=== PATIENT | female | born 1990 | race Caucasian/White ===

== ENCOUNTER 2020-06-28 02:56 | Emergency (ER) | payer OTHER ==
[~2020-06-28] VITALS: Ht 172.7 cm; Wt 54.4 kg
[2020-06-28] MEDS ORDERED: LIDOCAINE 1% INJ 20 ML 20 ML VIAL INJ ONE (03:15)
[2020-06-28] MEDS ORDERED: TETANUS,DIPTH,PERTUSS P/F (BOOSTRIX) 0.5 ML VIAL IM ONE (03:15)
--- NOTE | 2020-06-28 03:54 | ED Neurological Problem ---
General Chief Complaint: Laceration Stated Complaint: LACERATION ON L EYEBROW/HEAD PAIN Nursing Triage Note: PATIENT REPORTS SHE DOES NOT REMEMBER HOW SHE GOT THE CUT ON HER RIGHT EYEBROW. SHE DENIES LOSS OF CONCIOUSNESS OR ASSAULT. PATIENT IS TEARFUL AND WORRIED ABOUT THE COST OF TREATMENT. ALERT AND ORIENTED X 4. STANDS TO TRANSFER TO BED FROM WHEELCHAIR WITHOUT ASSISTANCE. CALL LIGHT IN REACH, ENCOURAGED TO CALL FOR ASSISTANCE OR NEEDS. MONITORING MAINTAINED. Nursing Sepsis Screen: No Definite Risk Source: patient Exam Limitations: no limitations History of Present Illness Date Seen by Provider: Jun 28, 2020 Time Seen by Provider: 03:52 Initial Comments This 30-year-old young lady presents to the emergency room intoxicated with a laceration in the right brow. She does not remember exactly how she sustained the injury. She denies any assault. She denies any pain except right at the site of laceration. She is alert and oriented. Allergies and Home Medications Allergies Coded Allergies: No Known Drug Allergies (Unverified , 06/28/20) Patient Home Medication List Home Medication List Reviewed: Yes Review of Systems Review of Systems Constitutional: see HPI Eyes: No Symptoms Reported Ears, Nose, Mouth, Throat: no symptoms reported Respiratory: no symptoms reported Cardiovascular: no symptoms reported Gastrointestinal: no symptoms reported Genitourinary: no symptoms reported : No Musculoskeletal: no symptoms reported Skin: see HPI Psychiatric/Neurological: See HPI Endocrine: No Symptoms Reported Hematologic/Lymphatic: No Symptoms Reported Past Xtrvrvm-Lnykjv-Pclrlo Hx Past Med/Social Hx: Reviewed Nursing Past Med/Soc Hx Patient Social History Alcohol Use: Occasionally Uses Alcohol Beverage of Choice: Beer Recreational Drug Use: No Recent Foreign Travel: No Contact w/Someone Who Travel: No Recent Infectious Disease Expo: No Physical Abuse: No Sexual Abuse: No Mistreated: No Fear: No Immunizations Up To Date Tetanus Booster (TDap): Less than 5yrs Past Medical History Surgeries: No Respiratory: No Cardiac: No Neurological: No : No Reproductive Disorders: No Sexually Transmitted Disease: No HIV/AIDS: No Gastrointestinal: No Musculoskeletal: No Endocrine: No HEENT: No Cancer: No Adverse Reaction/Blood Tranf: No Family Medical History No Pertinent Family Hx Physical Exam Vital Signs Vital Signs - First Documented 06/28/20 03:03 Temp 35.3 Pulse 121 Resp 18 B/P (MAP) 137/107 (117) Pulse Ox 97 Capillary Refill : Less Than 3 Seconds Height, Weight, BMI Height: '" Weight: 110lbs. oz. 49.054265tp; 18.00 BMI Method:Stated General Appearance: WD/WN, no apparent distress HEENT: PERRL/EOMI, pharynx normal, other (1 cm laceration in the right brow. No dental injury) Neck: non-tender, full range of motion, normal inspection Respiratory: lungs clear, normal breath sounds, no respiratory distress, no accessory muscle use Cardiovascular: no edema, no murmur, tachycardia Gastrointestinal: normal bowel sounds, non tender, soft Extremities: non-tender, normal inspection, no pedal edema Neurologic/Psychiatric: technical associate II-XII nml as tested, no motor/sensory deficits, alert, oriented x 3, other (Anxious) Crainal Nerves: normal hearing, normal speech, PERRL Coordination/Gait: normal gait Motor/Sensory: no motor deficit, no sensory deficit Skin: normal color, warm/dry Procedures/Interventions Wound Location: Face Other Wound Location Right brow Wound's Depth, Shape: linear Wound Explored: clean Betadine Prep?: Yes Anesthesia: 1% Lidocaine Volume Anesthetic (ccs): 1 Suture: Prolene Suture Size: 6-0 Number of Sutures: 2 Layer Closure?: 1 Sterile Dressing Applied?: No Progress Wound surface was sprayed with lidocaine. Skin was then cleaned with alcohol and 1 mL of lidocaine was injected for anesthetic. Wound was then scrubbed with saline and chlorhexidine. Betadine prep was applied. 2 interrupted sutures were applied to approximate the wound. Progress/Results/Core Measures Results/Orders My Orders Orders - YASMANY GONZALEZ MD Dipht,Pertuss(Acell),Tet Adult (Boostrix (06/28/20 03:15) Lidocaine 1% Inj 20 Ml (Xylocaine 1% Inj (06/28/20 03:15) Medications Given in ED Current Medications Medications Dose Ordered Sig/Suman Route Start Time Stop Time Status Last Admin Dose Admin Diphtheria/ Tetanus/Acell Pertussis 0.5 ml ONCE ONCE IM 06/28/20 03:15 06/28/20 03:16 DC 06/28/20 03:38 0.5 ML Vital Signs/I&O 06/28/20 06/28/20 03:03 04:07 Temp 35.3 Pulse 121 101 Resp 18 18 B/P (MAP) 137/107 (117) 117/80 (117) Pulse Ox 97 93 Blood Pressure Mean: 117 Progress Progress Note : Progress Note Wound was cleaned and approximated. Boostrix tetanus immunization was administered. Patient demonstrated ability to walk independently and safely. She was discharged home. Departure Impression Primary Impression: Laceration of face Qualified Codes: S01.81XA - Laceration without foreign body of other part of head, initial encounter Additional Impression: Alcohol intoxication Qualified Codes: F10.920 - Alcohol use, unspecified with intoxication, uncomplicated Disposition: 01 HOME, SELF-CARE Condition: Improved Departure-Patient Inst. Decision time for Depature: 03:53 Referrals: GABINO MARSHALL DO (PCP/Family) Primary Care Physician Patient Instructions: Laceration Repair With Stitches (DC) Add. Discharge Instructions: Monitor your wound for signs of infection such as increasing redness, increasing swelling, puslike drainage, or fever. Return to care promptly if you notice these symptoms. Return in 4 days to have your sutures removed. This can be done in the ER without appointment and with no charge. Avoid excessive alcohol consumption. Call or return to care if you have any other questions or concerns. All discharge instructions reviewed with patient and/or family. Voiced understanding. YASMANY GONZALEZ MD Jun 28, 2020 03:54
[2020-06-28 04:07] VITALS: BP 117/80
== END 2020-06-28 04:07 | disposition home or self-care (01) ==
LOC: EDUNIT# 02:56 → ER 02:59
DX: S01.81XA Laceration without foreign body of other part of head, initial encounter (principal); F10.129 Alcohol abuse with intoxication, unspecified; Z23 Encounter for immunization; X58.XXXA Exposure to other specified factors, initial encounter
CPT/HCPCS: 12011; 90715

== ENCOUNTER 2021-09-10 06:29 | Day surgery (SDC) | payer BC, OTHER ==
[2021-09-10] VITALS (9 sets, daily range): BP systolic 93–130; BP diastolic 59–96
[~2021-09-10] VITALS: Ht 162.6 cm; Wt 54.4 kg
[2021-09-10] MEDS ORDERED: LACTATED RINGERS 1,000 ML IV PRN (06:45)
[2021-09-10] MEDS ORDERED: ONDANSETRON 4 MG/2 ML (SDV) Z0FRAN ONE (07:29)
[2021-09-10] MEDS ORDERED: proPOfol 200 MG/20 ML (DIPRIVAN) VIAL IV ONE (07:29)
[2021-09-10] MEDS ORDERED: SEVOFLURANE (ULTANE) 15 ML INHAL SOLN ONE (07:29)
[2021-09-10] MEDS ORDERED: LIDOCAINE PF 2% 5 ML (XYLOCAINE) VIAL ONE (07:29)
[2021-09-10] MEDS ORDERED: MIDAZOLAM 2 MG/2 ML (VERSED) VIAL IVP ONE (07:30)
[2021-09-10] MEDS ORDERED: fentaNYL INJ 100 MCG/2 ML AMP ONE (07:30)
[2021-09-10] MEDS ORDERED: MIDAZOLAM 2 MG/2 ML (VERSED) VIAL ONE (07:30)
[2021-09-10 07:33] LABS: BASOPHILS % (AUTO) 1 % (0-10); EOSINOPHILS # (AUTO) 0.2 10^3/uL (0.0-0.3); EOSINOPHILS % (AUTO) 3 % (0-10); HEMATOCRIT 41 % (35-52); HEMOGLOBIN 14.2 g/dL (11.5-16.0); LYMPHOCYTES # (AUTO) 2.6 10^3/uL (1.0-4.0); LYMPHOCYTES % (AUTO) 50 % (12-44); MEAN CORPUSCULAR HEMOGLOBIN 32 pg (25-34); MEAN CORPUSCULAR HGB CONC 35 g/dL (32-36); MEAN CORPUSCULAR VOLUME 94 fL (80-99); MEAN PLATELET VOLUME 9.1 fL (9.0-12.2); MONOCYTES # (AUTO) 0.4 10^3/uL (0.0-1.0); MONOCYTES % (AUTO) 8 % (0-12); NEUTROPHILS % (AUTO) 38 % (42-75); PLATELET COUNT 271 10^3/uL (130-400); WHITE BLOOD COUNT 5.2 10^3/uL (4.3-11.0)
--- NOTE | 2021-09-10 08:07 | Progress Note-Pre Operative ---
Pre-Operative Progress Note H&P Reviewed The H&P was reviewed, patient examined and no changes noted. Date Seen by Provider: Sep 10, 2021 Time Seen by Provider: 07:15 Date H&P Reviewed: Sep 10, 2021 Time H&P Reviewed: 07:15 Pre-Operative Diagnosis: Incomplete JANNET Franco DO Sep 10, 2021 08:07
[2021-09-10] MEDS ORDERED: ACHD5005 PO (08:09)
[2021-09-10] MEDS ORDERED: IBUP-1773 PO (08:09)
--- NOTE | 2021-09-10 08:10 | Discharge Inst-Women's Service ---
Discharge Inst-Women's Serv Depart Medication/Instructions New, Converted or Re-Newed RX: Transmitted to Pharmacy Problems Reviewed?: Yes Consults/Follow Up Additional Follow Up: Yes Orders/Referrals Dr. Johnson in 2 weeks Activity Activity: Activity as Tolerated Driving Instructions: You May Drive (do not drive today) NO SMOKING: NO SMOKING Nothing Inside Vagina: No Douching, No [place], No Tampons Diet Discharge Diet: No Restrictions Symptoms to Report to : Bleeding Excessive, Pain Increased, Fever Over 101 Degrees F, Vaginal Bleeding Increase, Questions/Concerns For Any Problems or Questions: Contact Your Physician JANNET JOHNSON DO Sep 10, 2021 08:10
[2021-09-10] MEDS ORDERED: KETOROLAC 30 MG/ML VIAL IVP ONE (08:15)
[2021-09-10] MEDS ORDERED: HYDROcodone/APAP 5 MG/325 MG (LORTAB) TAB PO PRN (08:15)
[2021-09-10] MEDS ORDERED: D5 LR IV SOLUTION 1,000 ML IV SCH (08:15)
[2021-09-10] MEDS ORDERED: ONDANSETRON 4 MG/2 ML (SDV) Z0FRAN IVP PRN (08:15)
--- NOTE | 2021-09-10 10:06 | OPERATIVE REPORT ---
DATE OF SERVICE: 09/10/2021 PREOPERATIVE DIAGNOSIS: A 31-year-old female with incomplete . POSTOPERATIVE DIAGNOSIS: A 31-year-old female with incomplete . PROCEDURE: Suction D and C. SURGEON: Jannet Johnson DO. ANESTHESIA: LMA general. ESTIMATED BLOOD LOSS: Minimal. URINE OUTPUT: 30 mL clear drained at the start of the procedure. FLUIDS: 600 mL lactated Ringer's solution. FINDINGS: Scant amount of endometrial products of conception, grossly normal appearing external female genitalia. SPECIMEN SENT: Endometrial curettings and products of conception. INDICATIONS FOR PROCEDURE: This 31-year-old female is a patient who had initially sought [facility]; however, she ended up having a miscarriage at home. Her hCG values were followed weekly until there was a plateau noted to have approximately 500 units beta hCG. At that point, they started following the patient and also reported that she continued to have some bleeding that was not heavy, but it was continuous, due to suspicion for retained products of conception and incomplete , I discussed with the patient proceeding with suction D and C. Risks of procedure were discussed with the patient in detail as well as the indications with both her and her present. We agreed that suction D and C would be the best course of action. After everything was discussed with the patient, consent was obtained, the patient was taken to the operating room. OPERATIVE REPORT IN DETAIL: Once in the operating room, anesthesia was found to be adequate, placed in dorsal lithotomy position, prepped and draped in normal sterile fashion. Timeout was performed. A weighted speculum inserted to the patient's vagina. Right angle retractor was used to visualize the cervix, which was grasped at 12 o'clock position using a long Allis clamp. I then gently sound the uterine cavity, depth was found to be approximately 7 cm. I gently dilated the cervix to approximately 7 cm, at which point I selected a 7 cm rigid [place] suction curette. I advanced this into the endometrial cavity. I then applied the Baldo suction to a maximum suction pressure of approximately 70 mmHg, at which point I rotated the suction curette and methodically clear the endometrium of all residual products of conception and endometrial tissue. This was done on several different passes. There is little to no bleeding noted after doing this; however, I do perform a gentle sharp curettage until a very light uterine cry is appreciated at which point, I made one final pass with the suction curette. There was no active bleeding noted at that point, I removed all the instruments from the patient's vagina. The patient tolerated the procedure well and sent to recovery area in stable condition. Lap and sponge counts were correct at the end of the procedure. Instrument counts correct as well. Job ID: [id number] DocumentID: [id number] Dictated Date: 09/10/2021 08:57:31 Laborer Pipelines Date: 09/10/2021 10:06:10 Dictated By: JANNET JOHNSON DO
--- NOTE | 2021-09-10 10:40 | Anesthesia-General Post-Op ---
General Patient Condition Mental Status/LOC: Same as Preop Cardiovascular: Satisfactory Nausea/Vomiting: Absent Respiratory: Satisfactory Pain: Controlled Complications: Absent Post Op Complications Complications None Follow Up Care/Instructions Patient Instructions None needed. Anesthesia/Patient Condition Patient Condition Patient is doing well, no complaints, stable vital signs, no apparent adverse anesthesia problems. No complications reported per nursing. JANNETH MCDUFFIE CRNA Sep 10, 2021 10:40
== END 2021-09-10 10:35 | disposition home or self-care (01) ==
LOC: SDC 06:29
PROVIDERS: ATTEND Obstetrics & Gynecology
DX: O03.9 Complete or unspecified spontaneous abortion without complication (principal)
CPT/HCPCS: 36415; 85025; 86850; 86900; 86901; 87081

== ENCOUNTER → 2022-06-30 | Outpatient (CLI) | payer BC ==
[~2022-06-30] MED LIST: ACHD5005 PO; IBUP-1773 PO
--- NOTE | 2022-06-30 13:49 | Diagnostic Imaging Report ---
INDICATION: anatomy survey. TECHNIQUE: Multiple real-time grayscale images were obtained over the gravid uterus. COMPARISON: None. FINDINGS: The cervix measures 3.2 cm in length. Single live intrauterine is in breech presentation. Placenta is posteriorly positioned and there is no previa. The BRODY is normal at 13.26 cm. Following anatomy structures are visualized and normal: Four-chamber heart, stomach, spine, umbilical cord insertion, cerebral ventricles, posterior fossa, urinary bladder, three-vessel cord, right ventricular outflow tract, kidneys, left ventricular outflow tract and lip/nose. Biometrical measurements are as follows: Biparietal 4.31 cm, age 19 weeks 1 days. Head circumference 16.11 cm, age 19 weeks 0 days. Abdominal circumference 13.64 cm, age 19 weeks 1 days. Femur length 2.76 cm, age 18 weeks 4 days. Sonographic estimate age: 19 weeks 0 days. Sonographic estimated date of delivery: 11/24/2022. Estimated Weight: 258 gm (+/- 38 gm). LMP percentile: 34%. heart rate: 134 beats per minute. number: 1 of 1. IMPRESSION: 1. Single live intrauterine has normal anatomy survey. Dictated by: Dictated on workstation # [id number]
== END ==
LOC: RAD 09:41
PROVIDERS: ATTEND Nurse Practitioner Women's Health
DX: Z34.02 Encounter for supervision of normal first pregnancy, second trimester (principal)
CPT/HCPCS: 76805

== ENCOUNTER 2022-11-19 22:28 | Inpatient (IN) | payer BC ==
[~2022-11-19] VITALS: Ht 172.7 cm; Wt 75.6 kg
[2022-11-19 22:56] LABS: BILIRUBIN,URINE NEGATIVE (NEGATIVE); CLARITY,URINE CLEAR; COLOR,URINE YELLOW; GLUCOSE, URINE (UA) NEGATIVE (NEGATIVE); KETONES,URINE NEGATIVE (NEGATIVE); LEUKOCYTE ESTERASE ,URINE NEGATIVE (NEGATIVE); NITRITE,URINE NEGATIVE (NEGATIVE); PH,URINE 6.5 (5-9); PROTEIN,URINE NEGATIVE (NEGATIVE)
[2022-11-19 22:59] VITALS: BP 141/95
[2022-11-19 23:05] LABS: BACTERIA,URINE MODERATE /HPF
[2022-11-19 23:13] VITALS: BP 129/97
[2022-11-19] MEDS ORDERED: ASPI-999 PO (23:33)
[2022-11-19] MEDS ORDERED: PREN-142 PO (23:33)
[2022-11-20] VITALS (49 sets, daily range): BP systolic 76–166; BP diastolic 51–111
[2022-11-20] MEDS ORDERED: CALCIUM CARBONATE 500 MG (TUMS) TAB.CHEW ONE (01:28)
[2022-11-20] MEDS: CALCIUM CARBONATE 500 MG (TUMS) TAB.CHEW PO PRN ×3 (01:30→13:08)
[2022-11-20 01:32] LABS: BASOPHILS % (AUTO) 0 % (0-10); EOSINOPHILS # (AUTO) 0.1 10^3/uL (0.0-0.3); EOSINOPHILS % (AUTO) 1 % (0-10); HEMATOCRIT 40 % (35-52); HEMOGLOBIN 13.9 g/dL (11.5-16.0); LYMPHOCYTES # (AUTO) 2.4 10^3/uL (1.0-4.0); LYMPHOCYTES % (AUTO) 21 % (12-44); MEAN CORPUSCULAR HEMOGLOBIN 32 pg (25-34); MEAN CORPUSCULAR HGB CONC 35 g/dL (32-36); MEAN CORPUSCULAR VOLUME 92 fL (80-99); MEAN PLATELET VOLUME 10.9 fL (9.0-12.2); MONOCYTES # (AUTO) 0.6 10^3/uL (0.0-1.0); MONOCYTES % (AUTO) 5 % (0-12); NEUTROPHILS # (AUTO) 8.4 10^3/uL (1.8-7.8); NEUTROPHILS % (AUTO) 73 % (42-75); PLATELET COUNT 260 10^3/uL (130-400); WHITE BLOOD COUNT 11.5 10^3/uL (4.3-11.0)
[2022-11-20 01:45] LABS: ALBUMIN 3.6 GM/DL (3.2-4.5); POTASSIUM 3.8 MMOL/L (3.6-5.0)
[2022-11-20 01:47] LABS: CALCIUM 9.6 MG/DL (8.5-10.1)
[2022-11-20 01:48] LABS: TOTAL PROTEIN 7.6 GM/DL (6.4-8.2)
[2022-11-20 01:50] LABS: BILIRUBIN,TOTAL 0.3 MG/DL (0.1-1.0)
[2022-11-20 01:52] LABS: CREATININE SERUM 0.62 MG/DL (0.60-1.30)
[2022-11-20 01:55] LABS: URIC ACID 5.6 MG/DL (2.6-7.2)
--- NOTE | 2022-11-20 06:51 | OB Triage Report ---
Standard Progress Note Progress Notes/Assess & Plan Date Seen by a Provider: Nov 20, 2022 Time Seen by a Provider: 06:30 Expected Date of Delivery: Nov 24, 2022 Gestational Age in Weeks: 39 Gestational Age in Days: 2 LMP/GWYN Comment: n/a Progress/Assessment & Plan Patient presented overnight as 32 yo at 39w2d GA due to leakage of fluid. Reports that underwear felt wet the last 24 hours or so, but denies any large gushes or constant trickling, and reports that since being in the hospital it has decreased substantially; denies vaginal bleeding, and reports good FM. No contractions subjectively. Reports occasional mild PASCAL but nothing persistent, and no other systemic complaints See vitals flowsheet Exam notable for trace bilateral LE edema Abd soft, gravid, non-tender, non-distended A/P: 32 yo at 39w2d GA who presented with LOF; clinical evaluation reassuring against ROM. However, 3 of her initial BPs were noted to be elevated, potentially suspicious for gHTN. For that reason I recommended observation overnight, and after about 7 hours observation on L&D, she remained normotensive for the remainder of her evaluation (outside the first hour), so that a diagnosis of gHTN could not be made at this time. She was amenable to DC to home with return precautions, and will monitor particularly for symptoms of preE; has appt in clinic tomorrow for short term follow up Final Diagnosis leakage of fluid ALEC BERNSTEIN MD Nov 20, 2022 06:51
--- NOTE | 2022-11-20 07:54 | History & Physical-OB/GYN ---
History of Present Illness History of Present Illness Reason for visit/HPI Patient presents as 32 yo at 39w1d GA with leakage of fluid. See triage note from just an hour ago, but briefly, during discharge process patient stood up and felt a larger gush of fluid, and ROMPlus swab was performed and positive. She still reports no bleeding or contractions, and no new complaints since last note Date of Admission Nov 20, 2022 at 07:15 Date Seen by a Provider: Nov 20, 2022 Time Seen by a Provider: 07:30 I consulted on this patient on 11/20/22 07:47 Attending Physician Alec Bernstein MD Admitting Physician Admitting Physician: Alec Bernstein MD Attending Physician: Alec Bernstein MD Consult Allergies and Home Medications Allergies Coded Allergies: No Known Drug Allergies (Unverified , 09/10/21) Patient Home Medication List Home Medication List Reviewed: Yes Aspirin (Aspirin) 81 Mg Tab.chew, 81 MG PO, (Reported) Entered as Reported by: EMELY JIANG on 11/19/222332 Last Action: New Order Vit No.124/Iron/FA ( Vitamin Tablet) 27 Mg Iron-800 Mcg Tablet, 1 EACH PO, (Reported) Entered as Reported by: EMELY JIANG on 11/19/222332 Last Action: New Order Discontinued Medications Hydrocodone/Acetaminophen (Hydrocodone-Acetamin 5-325 mg) 1 Each Tablet, 1 TAB PO Q4H PRN for PAIN-MODERATE (5-7) Discontinued Reason: No Longer Taking Prescribed by: JANNET JOHNSON on 09/10/21808 Last Action: Discontinued Ibuprofen (Ibuprofen) 600 Mg Tablet, 600 MG PO Q6H Discontinued Reason: No Longer Taking Prescribed by: JANNET JOHNSON on 09/10/21808 Last Action: Discontinued Past Btcsfkx-Knasoj-Fsjona Hx Patient Social History Alcohol Beverage of Choice: Beer Smoking Status: Never a Smoker 2nd Hand Smoke Exposure: No Recent Hopitalizations: No Immunizations Up To Date Tetanus Booster (TDap): Less than 5yrs Seasonal Allergies Seasonal Allergies: No Surgeries Yes (wisdome teeth at the age of 17) Respiratory No Currently Using CPAP: No Currently Using BIPAP: No Cardiovascular No Neurological No Reproductive System Expected Date of Delivery: Nov 24, 2022 Hx : 2 Hx Para: 0 Hx Reproductive Disorders: No Sexually Transmitted Disease: No HIV/AIDS: No Gastrointestinal No Musculoskeletal No Endocrine History of Endocrine Disorders: No HEENT History of HEENT Disorders: No Cancer No Psychosocial History of Psychiatric Problem: No Integumentary History of Skin or Integumenta: No Blood Transfusions History of Blood Disorders: No Adverse Reaction to a Blood Tr: No Family Medical History Significant Family History: No Pertinent Family Hx Review of Systems Constitutional: no symptoms reported EENTM: no symptoms reported Respiratory: no symptoms reported Cardiovascular: no symptoms reported Gastrointestinal: no symptoms reported Genitourinary: no symptoms reported : Yes Musculoskeletal: no symptoms reported Skin: no symptoms reported Psychiatric/Neurological: No Symptoms Reported All Other Systems Reviewed Negative Unless Noted: Yes Physical Exam Physical Exam Vital Signs Vital Signs Date Time Temp Pulse Resp B/P (MAP) Pulse Ox O2 Delivery O2 Flow Rate FiO2 11/20/22 06:46 11/20/22 06:16 36.6 97 18 121/87 (98) 11/20/22 03:46 11/20/22 03:16 80 133/88 (103) 11/20/22 02:16 96 109/73 (85) 11/20/22 01:03 86 137/95 (109) 11/20/22 00:30 83 135/96 (109) 11/19/22 23:13 93 129/97 (108) 99 11/19/22 22:59 36.6 88 18 141/95 99 Room Air Capillary Refill : Less Than 3 Seconds Labs Laboratory Tests 11/19/22 22:45: Urine Color YELLOW, Urine Clarity CLEAR, Urine pH 6.5, Urine Specific [place] 1.010L, Urine Protein NEGATIVE, Urine Glucose (UA) NEGATIVE, Urine Ketones NEGATIVE, Urine Nitrite NEGATIVE, Urine Bilirubin NEGATIVE, Urine Urobilinogen 0.2, Urine Leukocyte Esterase NEGATIVE, Urine RBC (Auto) NEGATIVE, Urine RBC NONE, Urine WBC 2-5, Urine Squamous Epithelial Cells 10-25H, Urine Crystals NONE, Urine Bacteria MODERATEH, Urine Casts NONE, Urine Mucus SMALLH, Urine Culture Indicated YES 11/20/22 01:15: White Blood Count 11.5H, Red Blood Count 4.34, Hemoglobin 13.9, Hematocrit 40, Mean Corpuscular Volume 92, Mean Corpuscular Hemoglobin 32, Mean Corpuscular Hemoglobin Concent 35, Red Cell Distribution Width 13.1, Platelet Count 260, Mean Platelet Volume 10.9, Immature Granulocyte % (Auto) 0, Neutrophils (%) (Auto) 73, Lymphocytes (%) (Auto) 21, Monocytes (%) (Auto) 5, Eosinophils (%) (Auto) 1, Basophils (%) (Auto) 0, Neutrophils # (Auto) 8.4H, Lymphocytes # (Auto) 2.4, Monocytes # (Auto) 0.6, Eosinophils # (Auto) 0.1, Basophils # (Auto) 0.0, Immature Granulocyte # (Auto) 0.0, Sodium Level 140, Potassium Level 3.8, Chloride Level 109H, Carbon Dioxide Level 15L, Anion Gap 16H, Blood Urea Nitrogen 5L, Creatinine 0.62, Estimat Glomerular Filtration Rate 121, BUN/Creatinine Ratio 8, Glucose Level 78, Uric Acid 5.6, Calcium Level 9.6, Corrected Calcium 9.9, Total Bilirubin 0.3, Aspartate Amino Transf (AST/SGOT) 18, Alanine Aminotransferase (ALT/SGPT) 8, Alkaline Phosphatase 185H, Lactate Dehydrogenase 481H, Total Protein 7.6, Albumin 3.6 11/20/22 07:00: Membranes Rupture POSITIVE General Appearance: No Apparent Distress Respiratory: Normal Breath Sounds, No Respiratory Distress Cardiovascular: Normal Peripheral Pulses Cervix OS: open (1cm per nursing staff) Assessment/Plan Assessment and Plan 32 yo at 39w GA admitted for PROM; question of gHTN as well (see prior note), but as of now no two elevated BPs 4+ hrs apart. Because clinically it seems that PROM occurred about 12 hours ago, I've recommended proceeding with IOL, to which pt is agreeable. BSUS confirms cephalic presentation, and GBS neg. Will place finch for ripening + oxytocin, and recheck as clinically indicated thereafter. Admission Diagnosis Admission Status: Inpatient Order (span 2 midnights) Reason for Inpatient Admission: 2 midnights expected with course of induction and ALEC BERNSTEIN MD Nov 20, 2022 07:54
[2022-11-20] MEDS ORDERED: D5 LR IV SOLUTION 1,000 ML IV SCH (08:00)
[2022-11-20] MEDS ORDERED: MINERAL OIL 30 ML UDC TOP PRN (08:00)
[2022-11-20] MEDS ORDERED: OXYTOCIN PRE-MIX DRIP 500 ML IV SCH (08:00)
[2022-11-20] MEDS ORDERED: OXYTOCIN PRE-MIX DRIP 500 ML IV ONE (08:11)
[2022-11-20] MEDS ORDERED: D5 LR IV SOLUTION 1,000 ML IV ONE (08:11)
[2022-11-20] MEDS ORDERED: fentaNYL 2 mcg/ml BUPIVA 0.125 100 ML ONE (10:01)
[2022-11-20] MEDS ORDERED: fentaNYL INJ 100 MCG/2 ML AMP ONE (10:03)
[2022-11-20] MEDS ORDERED: BUPIVACAINE 0.25% 10 ML (SENSORCAINE) VIAL ONE (10:03)
[2022-11-20] MEDS ORDERED: fentaNYL 2 mcg/ml BUPIVA 0.125 100 ML IV SCH (10:30)
[2022-11-20] MEDS ORDERED: LACTATED RINGERS 1,000 ML IV ONE (10:30)
[2022-11-20] MEDS ORDERED: CATHETER FLUSH 10 ML SYR IV PRN (10:30)
[2022-11-20] MEDS ORDERED: NALOXONE 0.4 MG/ML 1 ML (NARCAN) VIAL IV PRN (10:30)
--- NOTE | 2022-11-20 14:24 | OB Labor & Delivery Record ---
Vag Delivery Note Vag Delivery Note Date of Delivery: 11/20/22 Preoperative Diagnosis: Katarzyna Morelos is a (32 /Para 2 / 0, Gestational Age (wks)39with PROM Postoperative Diagnosis: Same Surgeon: ALEC BERNSTEIN Anesthesia: Epidural Delivery Type: Findings: Viable female Lacerations: first degree perineal Intact placenta with 3 vessel cord. No nuchal cord, body cord or shoulder dystocia Estimated Blood Loss: 200 ml Complications: None Condition: Stable Description of Procedure: The patient is a 32 year old female who presented with PROM. She was admitted and informed consent was obtained. Her labor course was notable for induction with oxytocin and cook catheter. She progressed to complete dilatation and began to push. She was then set up for delivery. The infant's head was delivered atraumatically in the MARIALUISA position. The shoulders and remainder of the 's body were then delivered without difficulty. Upon delivery, the was vigorous and placed on maternal chest and the mouth and nares were bulb suctioned. After a delay cord was doubly clamped and cut and the remained on maternal chest. An intact placenta with 3-vessel cord delivered via [place] and there was found to be minimal bleeding.~ Vigorous fundal massage was performed and the fundus was found to be firm. IV oxytocin was given. Examination of the vagina and perineum revealed a first degree hemostatic laceration not requiring repair. sponge, instrument and needle counts were correct. Mom and baby were both in stable condition in the labor suite. Vitals - Labs Vital Signs - I&O Vital Signs Date Time Temp Pulse Resp B/P (MAP) Pulse Ox O2 Delivery O2 Flow Rate FiO2 11/20/22 12:00 96 18 134/92 (106) 100 11/20/22 11:45 110 18 129/95 (106) 100 11/20/22 11:25 121 18 130/91 (104) 100 11/20/22 11:20 105 18 140/98 (112) 100 11/20/22 11:15 121 18 131/93 (106) 100 11/20/22 11:10 100 18 141/83 (102) 97 11/20/22 11:08 84 18 76/51 (59) 99 11/20/22 11:05 84 18 100/59 (73) 99 11/20/22 10:55 96 18 131/83 (99) 99 11/20/22 10:49 93 18 125/82 (96) 99 11/20/22 10:46 90 18 126/86 (99) 99 11/20/22 10:43 101 18 129/90 (103) 99 11/20/22 10:40 111 18 134/94 (107) 98 11/20/22 10:38 83 18 131/85 (100) 98 11/20/22 10:35 79 18 133/86 (102) 98 11/20/22 10:32 36.7 75 18 133/90 (104) 97 11/20/22 10:29 111 18 127/86 (100) 97 11/20/22 10:26 82 18 136/86 (103) 100 11/20/22 10:23 93 18 141/88 (105) 92 11/20/22 10:20 89 18 147/83 (104) 99 11/20/22 10:10 92 161/95 (117) 11/20/22 09:55 84 138/87 (104) 11/20/22 09:40 95 166/98 (120) 11/20/22 09:25 81 136/90 (105) 11/20/22 09:05 88 141/101 (114) 11/20/22 08:50 85 129/97 (108) 11/20/22 08:35 75 137/97 (110) 11/20/22 08:20 36.6 80 18 139/99 (112) 11/20/22 06:46 11/20/22 06:16 36.6 97 18 121/87 (98) 11/20/22 03:46 11/20/22 03:16 80 133/88 (103) 11/20/22 02:16 96 109/73 (85) 11/20/22 01:03 86 137/95 (109) 11/20/22 00:30 83 135/96 (109) 11/19/22 23:13 93 129/97 (108) 99 11/19/22 22:59 36.6 88 18 141/95 99 Room Air Labs Laboratory Tests 11/19/22 22:45: Urine Color YELLOW, Urine Clarity CLEAR, Urine pH 6.5, Urine Specific [place] 1.010L, Urine Protein NEGATIVE, Urine Glucose (UA) NEGATIVE, Urine Ketones NEGATIVE, Urine Nitrite NEGATIVE, Urine Bilirubin NEGATIVE, Urine Urobilinogen 0.2, Urine Leukocyte Esterase NEGATIVE, Urine RBC (Auto) NEGATIVE, Urine RBC NONE, Urine WBC 2-5, Urine Squamous Epithelial Cells 10-25H, Urine Crystals NONE, Urine Bacteria MODERATEH, Urine Casts NONE, Urine Mucus SMALLH, Urine Culture Indicated YES 11/20/22 01:15: White Blood Count 11.5H, Red Blood Count 4.34, Hemoglobin 13.9, Hematocrit 40, Mean Corpuscular Volume 92, Mean Corpuscular Hemoglobin 32, Mean Corpuscular Hemoglobin Concent 35, Red Cell Distribution Width 13.1, Platelet Count 260, Mean Platelet Volume 10.9, Immature Granulocyte % (Auto) 0, Neutrophils (%) (Auto) 73, Lymphocytes (%) (Auto) 21, Monocytes (%) (Auto) 5, Eosinophils (%) (Auto) 1, Basophils (%) (Auto) 0, Neutrophils # (Auto) 8.4H, Lymphocytes # (Auto) 2.4, Monocytes # (Auto) 0.6, Eosinophils # (Auto) 0.1, Basophils # (Auto) 0.0, Immature Granulocyte # (Auto) 0.0, Sodium Level 140, Potassium Level 3.8, Chloride Level 109H, Carbon Dioxide Level 15L, Anion Gap 16H, Blood Urea Nitrogen 5L, Creatinine 0.62, Estimat Glomerular Filtration Rate 121, BUN/Creatinine Ratio 8, Glucose Level 78, Uric Acid 5.6, Calcium Level 9.6, Corrected Calcium 9.9, Total Bilirubin 0.3, Aspartate Amino Transf (AST/SGOT) 18, Alanine Aminotransferase (ALT/SGPT) 8, Alkaline Phosphatase 185H, Lactate Dehydrogenase 481H, Total Protein 7.6, Albumin 3.6 11/20/22 07:00: Membranes Rupture POSITIVE ALEC BERNSTEIN MD Nov 20, 2022 14:24
[2022-11-20] MEDS: OXYTOCIN PRE-MIX DRIP 500 ML IV SCH ×2 (14:25→16:29)
[2022-11-20] MEDS ORDERED: BENZOCAINE/MENTHOL (DERMOPLAST) 56 ML CAN TP PRN (15:45)
[2022-11-20] MEDS ORDERED: WITCH HAZEL(TUCKS) 40 EA JAR TOP PRN (15:45)
[2022-11-20] MEDS: IBUPROFEN 600 MG (MOTRIN) TAB PO SCH ×2 (16:00→21:32)
[2022-11-20] MEDS: ACETAMINOPHEN 500 MG TAB (TYLENOL) PO SCH ×2 (16:00→21:32)
[2022-11-20] MEDS: DOCUSATE SODIUM 100 MG (COLACE) CAP PO SCH (21:31)
[2022-11-20] MEDS ORDERED: CATHETER FLUSH 10 ML SYR IV SCH (22:00)
[2022-11-21 00:39] VITALS: BP 127/73
[2022-11-21 04:28] VITALS: BP 120/82
[2022-11-21] MEDS: ACETAMINOPHEN 500 MG TAB (TYLENOL) PO SCH ×2 (04:28→10:36)
[2022-11-21] MEDS: IBUPROFEN 600 MG (MOTRIN) TAB PO SCH ×2 (04:28→10:36)
[2022-11-21 05:56] LABS: BASOPHILS % (AUTO) 0 % (0-10); EOSINOPHILS # (AUTO) 0.1 10^3/uL (0.0-0.3); EOSINOPHILS % (AUTO) 1 % (0-10); HEMATOCRIT 32 % (35-52); HEMOGLOBIN 11.3 g/dL (11.5-16.0); LYMPHOCYTES # (AUTO) 2.2 10^3/uL (1.0-4.0); LYMPHOCYTES % (AUTO) 20 % (12-44); MEAN CORPUSCULAR HEMOGLOBIN 33 pg (25-34); MEAN CORPUSCULAR HGB CONC 35 g/dL (32-36); MEAN CORPUSCULAR VOLUME 93 fL (80-99); MEAN PLATELET VOLUME 10.5 fL (9.0-12.2); MONOCYTES # (AUTO) 0.7 10^3/uL (0.0-1.0); MONOCYTES % (AUTO) 6 % (0-12); NEUTROPHILS # (AUTO) 7.8 10^3/uL (1.8-7.8); NEUTROPHILS % (AUTO) 73 % (42-75); PLATELET COUNT 199 10^3/uL (130-400); WHITE BLOOD COUNT 10.7 10^3/uL (4.3-11.0)
[2022-11-21] MEDS ORDERED: PRENATAL VITAMIN 1 EA TAB PO SCH (07:00)
[2022-11-21 07:50] VITALS: BP 126/85
[2022-11-21] MEDS: DOCUSATE SODIUM 100 MG (COLACE) CAP PO SCH (07:52)
[2022-11-21] MEDS ORDERED: RHO(D) IMMUNE GLOBULIN 300 MCG/2 ML SYRINGE IM/IV ONE (09:00)
--- NOTE | 2022-11-21 11:13 | Anesthesia-Regional Post-Op ---
Regional Patient Condition Mental Status: Alert, Oriented x3 Circulation: Same as Pre-Op Headache: Absent Sensation: Full Recovery Motor Block: Absent Post Op Complications Complications None Follow Up Care/Instructions Patient Instructions None needed. Anesthesia/Patient Condition Patient is doing well, no complaints, stable vital signs, no apparent adverse anesthesia problems. No complications reported per nursing. JANNETH MCDUFFIE CRNA Nov 21, 2022 11:13
[2022-11-21 12:00] VITALS: BP 131/90
[2022-11-21] MEDS ORDERED: IBUP-1773 PO (12:42)
--- NOTE | 2022-11-21 12:43 | Discharge Inst-Women's Service ---
Discharge Inst-Women's Serv Depart Medication/Instructions New, Converted or Re-Newed RX: Transmitted to Pharmacy Problems Reviewed?: Yes Consults/Follow Up Additional Follow Up: Yes Orders/Referrals Dr. Johnson in 6 weeks Activity Activity: Activity as Tolerated Driving Instructions: No Driving for 1 Week NO SMOKING: NO SMOKING Nothing Inside Vagina: No Douching, No Dix, No Tampons Diet Discharge Diet: No Restrictions Symptoms to Report to : Bleeding Excessive, Pain Increased, Fever Over 101 Degrees F, Vaginal Bleeding Increase, Questions/Concerns For Any Problems or Questions: Contact Your Physician JANNET JOHNSON DO Nov 21, 2022 12:43 pm
[2022-11-21] MEDS ORDERED: DOCU100C37 PO (12:44)
[2022-11-21] MEDS ORDERED: ACET-93 PO (12:44)
[2022-11-21 15:35] VITALS: BP 131/90
== END 2022-11-21 15:35 | disposition home or self-care (01) | DRG 807 ==
LOC: WSo 22:28 → LDRP 22:28 → WSo 11-20 07:14 → LDRP 11-20 07:15
PROVIDERS: ADMIT Student in an Organized Health Care Education/Training Program; ATTEND Student in an Organized Health Care Education/Training Program
PROC: 10E0XZZ Delivery of Products of Conception, External Approach (ICD-10-PCS; principal; 2022-11-20)
PROC: 3E033VJ Introduction of Other Hormone into Peripheral Vein, Percutaneous Approach (ICD-10-PCS; 2022-11-20)
PROC: 0U7C7ZZ Dilation of Cervix, Via Natural or Artificial Opening (ICD-10-PCS; 2022-11-20)
DX: O42.02 Full-term premature rupture of membranes, onset of labor within 24 hours of rupture (principal); Z37.0 Single live birth; O70.0 First degree perineal laceration during delivery; Z3A.39 39 weeks gestation of pregnancy
CPT/HCPCS: 36415; 80053; 81000; 83033; 83615; 84112; 84550; 85025; 86850; 86900; 86901; 87088

== ENCOUNTER 2023-03-08 12:22 | Observation (INO) | payer BC ==
[~2023-03-08] VITALS: Ht 172.7 cm; Wt 62.0 kg
[~2023-03-08 12:22] MED LIST changes: +ACET-93 PO; +ASPI-999 PO; +DOCU100C37 PO; +PREN-142 PO
[2023-03-08] MEDS ORDERED: fentaNYL INJECTION 100 MCG/2 ML VIAL IVP STA (12:31)
--- NOTE | 2023-03-08 12:39 | ED Abdominal Pain ---
General Chief Complaint: Abdominal/GI Problems Stated Complaint: ABD PAIN | VOMITING Source of Information: Patient Exam Limitations: No Limitations History of Present Illness Date Seen by Provider: Mar 08, 2023 Time Seen by Provider: 12:24 Initial Comments 32-year-old female presents to the ER with complaint of right lower quadrant ab dominal pain starting last night, as well as vomiting. States she has not eaten today, but has vomited every time she tried to drink water. She states that she did not have a bowel movement yesterday, felt as though she might be constipated, so took a laxative. She reports she had a bowel movement today, but the pain and vomiting has continued. She states that nothing seems to make the pain better or worse. She denies fevers. She is currently breast-feeding, has not had a menstrual cycle since before her . Her baby was delivered in October. She denies any abdominal surgeries. Allergies and Home Medications Allergies Coded Allergies: No Known Drug Allergies (Unverified , 09/10/21) Patient Home Medication List Home Medication List Reviewed: Yes Acetaminophen (Acetaminophen) 500 Mg Tablet, 1,000 MG PO Q6H Prescribed by: JANNET JOHNSON on 11/21/22 1244 Aspirin (Aspirin) 81 Mg Tab.chew, 81 MG PO, (Reported) Entered as Reported by: EMELY JIANG on 11/19/22 2333 Docusate Sodium (Docusate Sodium) 100 Mg Capsule, 100 MG PO BID PRN for CONSTIPATION-1ST LINE Prescribed by: JANNET JOHNSON on 11/21/22 1244 Ibuprofen (Ibuprofen) 600 Mg Tablet, 600 MG PO Q6H Prescribed by: JANNET JOHNSON on 11/21/22 1242 Vit No.124/Iron/FA ( Vitamin Tablet) 27 Mg Iron-800 Mcg Tablet, 1 EACH PO, (Reported) Entered as Reported by: EMELY JIANG on 11/19/22 2333 Review of Systems Review of Systems Constitutional: see HPI Past Pysqaww-Qdbtfo-Aysbmz Hx Patient Social History Tobacco Use?: No Use of E-Cig and/or Vaping dev: No Substance use?: No Alcohol Use?: Yes Alcohol Frequency: Rarely Pt feels they are or have been: No Immunizations Up To Date Tetanus Booster (TDap): Less than 5yrs First/Initial COVID19 Vaccinat: october 2020 Second COVID19 Vaccination Lyndon: january 2021 Third COVID19 Vaccination Date: october 2020 Seasonal Allergies Seasonal Allergies: No Past Medical History Surgery/Hospitalization HX: pt denies Surgeries: Yes (wisdome teeth at the age of 17) Respiratory: No Currently Using CPAP: No Currently Using BIPAP: No Cardiac: No Neurological: No Reproductive Disorders: No Sexually Transmitted Disease: No HIV/AIDS: No Gastrointestinal: No Musculoskeletal: No Endocrine: No HEENT: No Cancer: No Psychosocial: No Integumentary: No Blood Disorders: No Adverse Reaction/Blood Tranf: No Family Medical History No Pertinent Family Hx Physical Exam Vital Signs Vital Signs - First Documented 03/08/23 12:28 Temp 35.7 Pulse 96 Resp 14 B/P (MAP) 126/93 (104) Pulse Ox 98 O2 Delivery Room Air Capillary Refill : Height/Weight/BMI Height: '" Weight: 110lbs. oz. 49.622983ui; 25.34 BMI Method:Stated General Appearance: WD/WN, mild distress Neck: supple, normal inspection Respiratory: lungs clear, normal breath sounds, no respiratory distress, no accessory muscle use Cardiovascular: regular rate, rhythm Gastrointestinal: normal bowel sounds, soft; No guarding; tenderness (Right lower quadrant) Extremities: normal range of motion, normal inspection Neurologic/Psychiatric: alert, normal mood/affect Skin: normal color, warm/dry Procedures/Interventions Suture Size: 6-0 Progress/Results/Core Measures Results/Orders Lab Results Laboratory Tests Test 03/08/23 12:35 03/08/23 12:45 Range/Units Urine Color YELLOW Urine Clarity CLEAR Urine pH 5.5 5-9 Urine Specific [place] >1.030 1.016-1.022 Urine Protein NEGATIVE NEGATIVE Urine Glucose (UA) NEGATIVE NEGATIVE Urine Ketones 1+ H NEGATIVE Urine Nitrite NEGATIVE NEGATIVE Urine Bilirubin NEGATIVE NEGATIVE Urine Urobilinogen 0.2 < = 1.0 MG/DL Urine Leukocyte Esterase NEGATIVE NEGATIVE Urine RBC (Auto) TRACE H NEGATIVE Urine RBC 0-2 /HPF Urine WBC NONE /HPF Urine Squamous Epithelial Cells 10-25 H /HPF Urine Crystals NONE /LPF Urine Bacteria TRACE /HPF Urine Casts NONE /LPF Urine Mucus NEGATIVE /LPF Urine Culture Indicated NO White Blood Count 16.8 H 4.3-11.0 10^3/uL Red Blood Count 4.75 3.80-5.11 10^6/uL Hemoglobin 14.7 11.5-16.0 g/dL Hematocrit 43 35-52 % Mean Corpuscular Volume 91 80-99 fL Mean Corpuscular Hemoglobin 31 25-34 pg Mean Corpuscular Hemoglobin Concent 34 32-36 g/dL Red Cell Distribution Width 12.1 10.0-14.5 % Platelet Count 287 130-400 10^3/uL Mean Platelet Volume 9.1 9.0-12.2 fL Immature Granulocyte % (Auto) 0 % Neutrophils (%) (Auto) 82 H 42-75 % Lymphocytes (%) (Auto) 11 L 12-44 % Monocytes (%) (Auto) 6 0-12 % Eosinophils (%) (Auto) 0 0-10 % Basophils (%) (Auto) 0 0-10 % Neutrophils # (Auto) 13.8 H 1.8-7.8 10^3/uL Lymphocytes # (Auto) 1.8 1.0-4.0 10^3/uL Monocytes # (Auto) 1.1 H 0.0-1.0 10^3/uL Eosinophils # (Auto) 0.1 0.0-0.3 10^3/uL Basophils # (Auto) 0.0 0.0-0.1 10^3/uL Immature Granulocyte # (Auto) 0.1 0.0-0.1 10^3/uL Neutrophils % (Manual) 80 % Lymphocytes % (Manual) 14 % Monocytes % (Manual) 6 % Platelet Estimate ADEQUATE Blood Morphology Comment NORMAL Sodium Level 138 135-145 MMOL/L Potassium Level 4.2 3.6-5.0 MMOL/L Chloride Level 109 H 98-107 MMOL/L Carbon Dioxide Level 17 L 21-32 MMOL/L Anion Gap 12 5-14 MMOL/L Blood Urea Nitrogen 15 7-18 MG/DL Creatinine 0.68 0.60-1.30 MG/DL Estimat Glomerular Filtration Rate 119 BUN/Creatinine Ratio 22 Glucose Level 100 70-105 MG/DL Calcium Level 10.7 H 8.5-10.1 MG/DL Corrected Calcium 10.3 H 8.5-10.1 MG/DL Total Bilirubin 0.6 0.1-1.0 MG/DL Aspartate Amino Transf (AST/SGOT) 17 5-34 U/L Alanine Aminotransferase (ALT/SGPT) 23 0-55 U/L Alkaline Phosphatase 128 40-136 U/L C-Reactive Protein High Sensitivity 0.53 H 0.00-0.50 MG/DL Total Protein 8.1 6.4-8.2 GM/DL Albumin 4.5 3.2-4.5 GM/DL Lipase 8 8-78 U/L My Orders Orders - JOHN LEON APRN Ua Culture If Indicated (03/08/23 12:23) Urine Bedside (03/08/23 12:23) Comprehensive Metabolic Panel (03/08/23 12:31) Lipase (03/08/23 12:31) Ed Iv/Invasive Line Start (03/08/23 12:31) Cbc With Automated Diff (03/08/23 12:31) Ns Iv 1000 Ml (Sodium Chloride 0.9%) (03/08/23 12:45) Ondansetron Injection (Zofran Injectio (03/08/23 12:45) Fentanyl Injection (Fentanyl Injection (03/08/23 12:31) Hs C Reactive Protein (03/08/23 12:31) Manual Differential (03/08/23 12:45) Ct Abd/Pelv W (Appendicitis) (03/08/23 12:58) Iohexol Injection (Omnipaque 350 Mg/Ml 1 (03/08/23 13:15) Received Contrast (Hold Metformin- Contr (03/08/23 13:15) Ns (Ivpb) 100 Ml (Sodium Chloride 0.9% 1 (03/08/23 13:15) Fentanyl Injection (Fentanyl Injection (03/08/23 14:00) Ciprofloxacin Iv 400mg/200ml (Ciprofloxa (03/08/23 14:00) Metronidazole 500mg/100ml Ivpb (Flagyl 5 (03/08/23 14:00) Ed Admission (Communication) (03/08/23 14:08) Medications Given in ED Current Medications Medications Dose Ordered Sig/Suman Route Start Time Stop Time Status Last Admin Dose Admin Fentanyl Citrate 50 mcg ONCE ONCE IVP 03/08/23 14:00 03/08/23 14:01 DC 03/08/23 14:03 50 MCG Iohexol 100 ml ONCE ONCE IV 03/08/23 13:15 03/08/23 13:16 DC 03/08/23 13:23 73 ML Metronidazole 100 ml @ 100 mls/hr ONCE ONCE IV 03/08/23 14:00 03/08/23 14:59 03/08/23 14:03 100 MLS/HR Ondansetron HCl 4 mg ONCE ONCE IVP 03/08/23 12:45 03/08/23 12:46 DC 03/08/23 12:46 4 MG Sodium Chloride 100 ml ONCE ONCE IV 03/08/23 13:15 03/08/23 13:16 DC 03/08/23 13:24 80 ML Vital Signs/I&O 03/08/23 12:28 Temp 35.7 Pulse 96 Resp 14 B/P (MAP) 126/93 (104) Pulse Ox 98 O2 Delivery Room Air Progress Progress Note : Progress Note Patient seen and evaluated, resting in bed, mild distress. Based on exam and symptoms, differential diagnosis includes but is not limited to acute appendicitis, nephrolithiasis, pyelonephritis, UTI, ovarian cyst, other abdominal pathology. Workup initiated including CBC, CMP, lipase, UA, urine , CRP. IV fluids, fentanyl, Zofran ordered. [address] reviewed. CBC shows elevated WBC 16.8, elevated neutrophil percentage 82. CMP shows elevated chloride 109, decreased CO2 of 17. CRP 0.53. Urine shows 1+ ketones, trace RBCs, no WBCs, 10-25 squamous epithelial cells, trace bacteria. Not concerned for urinary tract infection. CT abdomen pelvis shows acute appendicitis, no abscess or bowel obstruction identified. Cholelithiasis also noted, no concern for cholecystitis. I called and spoke with Dr. Jeff, surgery. He would like patient admitted to him and started on IV antibiotics as well as oral and IV pain and nausea medications. I informed him that patient is breast-feeding and her daughter has difficulty taking a bottle. He would like me to place bridge orders. Results and plan of care discussed with patient and significant other. Diagnostic Imaging Diagonstic Imaging: CT Plain Films/CT/US/NM/MRI: abdomen, pelvis Comments [facility]. [place], [place] NAME: [facility] REC#: [id number] PT STATUS: REG ER : 1990 PHYSICIAN: JOHN LEON APRN ADMIT DATE: 03/08/23/ER Draft Date of Exam:03/08/23 CT ABD/PELV W (APPENDICITIS) PROCEDURE: CT abdomen and pelvis with contrast, rule out appendicitis. TECHNIQUE: Multiple contiguous axial images were obtained through the abdomen and pelvis after the administration of intravenous contrast. All CT scans use one or more of the following dose optimizing techniques: automated exposure control, MA and/or KvP adjustment based on patient size and exam type or iterative reconstruction. INDICATION: Right lower quadrant pain and vomiting. COMPARISON: No prior studies are available for comparison. FINDINGS: The lung bases are clear. The liver is unremarkable. The gallbladder contains small stones. There is no biliary ductal dilatation. The pancreas and spleen are unremarkable. No adrenal mass is detected. The kidneys are without calculi or hydronephrosis. The aorta is nonaneurysmal. The small and large bowel loops are of normal caliber. There is no obstruction. The appendix is dilated and fluid-filled. There is some hyperemia of the appendiceal wall as well as surrounding inflammation. Features are consistent with acute appendicitis. No abscess formation or bowel obstruction is identified. No free fluid is seen. The uterus and bladder are unremarkable. IMPRESSION: 1. Findings consistent with acute appendicitis. No abscess formation or bowel obstruction is identified. 2. Cholelithiasis. Dictated on workstation # [id number] Dict: 03/08/23 1331 Trans: 03/08/23 1334 [id number] Interpreted by: CLARENCE MATT MD Electronically signed by: Departure Communication (Admissions) Time/Spoke to Admitting Phy: 13:49 Dr. Jeff, surgery, see progress note. Impression Primary Impression: Appendicitis Qualified Codes: K35.80 - Unspecified acute appendicitis Disposition: ADMITTED INPATIENT Condition: Stable Admissions Decision to Admit Reason: Admit from ER (General) Decision to Admit/Date: Mar 08, 2023 Time/Decision to Admit Time: 13:49 Departure-Patient Inst. Referrals: GABINO MARSHALL DO (PCP/Family) Primary Care Physician JOHN LEON APRN Mar 08, 2023 12:39
[2023-03-08] MEDS ORDERED: ONDANSETRON INJECTION 4 MG/2 ML (SDV) IVP ONE (12:45)
[2023-03-08] MEDS ORDERED: NS IV 1000 ML 1,000 ML IV SCH (12:45)
[2023-03-08 12:55] LABS: CLARITY,URINE CLEAR; COLOR,URINE YELLOW
[2023-03-08 12:55] LABS: BASOPHILS % (AUTO) 0 % (0-10); EOSINOPHILS # (AUTO) 0.1 10^3/uL (0.0-0.3); EOSINOPHILS % (AUTO) 0 % (0-10); HEMATOCRIT 43 % (35-52); HEMOGLOBIN 14.7 g/dL (11.5-16.0); LYMPHOCYTES # (AUTO) 1.8 10^3/uL (1.0-4.0); LYMPHOCYTES % (AUTO) 11 % (12-44); MEAN CORPUSCULAR HEMOGLOBIN 31 pg (25-34); MEAN CORPUSCULAR HGB CONC 34 g/dL (32-36); MEAN CORPUSCULAR VOLUME 91 fL (80-99); MEAN PLATELET VOLUME 9.1 fL (9.0-12.2); MONOCYTES # (AUTO) 1.1 10^3/uL (0.0-1.0); MONOCYTES % (AUTO) 6 % (0-12); NEUTROPHILS # (AUTO) 13.8 10^3/uL (1.8-7.8); NEUTROPHILS % (AUTO) 82 % (42-75); PLATELET COUNT 287 10^3/uL (130-400); WHITE BLOOD COUNT 16.8 10^3/uL (4.3-11.0)
[2023-03-08 12:56] LABS: BILIRUBIN,URINE NEGATIVE (NEGATIVE); GLUCOSE, URINE (UA) NEGATIVE (NEGATIVE); KETONES,URINE 1+ (NEGATIVE); LEUKOCYTE ESTERASE ,URINE NEGATIVE (NEGATIVE); NITRITE,URINE NEGATIVE (NEGATIVE); PH,URINE 5.5 (5-9); PROTEIN,URINE NEGATIVE (NEGATIVE); RBC,URINE 0-2 /HPF
[2023-03-08 12:57] LABS: BACTERIA,URINE TRACE /HPF
[2023-03-08 13:04] LABS: ALBUMIN 4.5 GM/DL (3.2-4.5); POTASSIUM 4.2 MMOL/L (3.6-5.0)
[2023-03-08 13:05] LABS: CALCIUM 10.7 MG/DL (8.5-10.1)
[2023-03-08 13:06] LABS: TOTAL PROTEIN 8.1 GM/DL (6.4-8.2)
[2023-03-08 13:08] LABS: BILIRUBIN,TOTAL 0.6 MG/DL (0.1-1.0)
[2023-03-08 13:09] LABS: LYMPHOCYTES % (MANUAL) 14 %; MONOCYTES % (MANUAL) 6 %; NEUTROPHILS % (MANUAL) 80 %; PLATELET ESTIMATE ADEQUATE; RBC MORPH NORMAL
[2023-03-08 13:10] LABS: CREATININE SERUM 0.68 MG/DL (0.60-1.30)
[2023-03-08] MEDS ORDERED: IOHEXOL 350 MG/ML 100 ML (OMNIPAQUE 350) VIAL IV ONE (13:15)
[2023-03-08] MEDS ORDERED: HOLD METFORMIN - RECEIVED CONTRAST 20 ML VIAL IV SCH (13:15)
[2023-03-08] MEDS ORDERED: NS 100 ML (IVPB) BAG IV ONE (13:15)
--- NOTE | 2023-03-08 13:34 | Diagnostic Imaging Report ---
PROCEDURE: CT abdomen and pelvis with contrast, rule out appendicitis. TECHNIQUE: Multiple contiguous axial images were obtained through the abdomen and pelvis after the administration of intravenous contrast. All CT scans use one or more of the following dose optimizing techniques: automated exposure control, MA and/or KvP adjustment based on patient size and exam type or iterative reconstruction. INDICATION: Right lower quadrant pain and vomiting. COMPARISON: No prior studies are available for comparison. FINDINGS: The lung bases are clear. The liver is unremarkable. The gallbladder contains small stones. There is no biliary ductal dilatation. The pancreas and spleen are unremarkable. No adrenal mass is detected. The kidneys are without calculi or hydronephrosis. The aorta is nonaneurysmal. The small and large bowel loops are of normal caliber. There is no obstruction. The appendix is dilated and fluid-filled. There is some hyperemia of the appendiceal wall as well as surrounding inflammation. Features are consistent with acute appendicitis. No abscess formation or bowel obstruction is identified. No free fluid is seen. The uterus and bladder are unremarkable. IMPRESSION: 1. Findings consistent with acute appendicitis. No abscess formation or bowel obstruction is identified. 2. Cholelithiasis. Dictated by: Dictated on workstation # [id number]
[2023-03-08] MEDS ORDERED: metroNIDAZOLE 500MG/100ML IVPB 100 ML IV ONE (14:00)
[2023-03-08] MEDS ORDERED: CIPROFLOXACIN IV 400MG/200ML 200 ML IV ONE (14:00)
[2023-03-08] MEDS ORDERED: fentaNYL INJECTION 100 MCG/2 ML VIAL IVP ONE (14:00)
[2023-03-08 15:03] VITALS: BP 116/78
[2023-03-08] MEDS ORDERED: HYDR-3817 PO (15:09)
--- NOTE | 2023-03-08 15:10 | Discharge Inst-Surgical ---
D/C Lap Instructions-TAMIKO New, Converted, or Re-Newed RX: RX on Chart Follow Up Appt in 2 weeks Activity as tolerated No driving for 24 hours No driving while on pain medications Incentive Spirometry use every 2 hours while awake Regular Diet Symptoms to Report: Fever over 101 degree F, Nausea/Vomiting Infection Signs and Symptoms to report: Increased redness, Foul odor of wound, Increased drainage Bathing instructions: May shower Operative Area Clean/Dry; Keep incision clean/dry If any problems/questions: Contact your physician or go to Emergency Room HOLLY MORRISON MD Mar 08, 2023 15:10
[2023-03-08] MEDS ORDERED: fentaNYL INJECTION 100 MCG/2 ML VIAL IV PRN (15:15)
[2023-03-08] MEDS ORDERED: diphenhydrAMINE INJ 50 MG/ML VIAL IV PRN (15:15)
[2023-03-08] MEDS ORDERED: PROCHLORPERAZINE INJ 10 MG/2ML VIAL IV PRN (15:15)
[2023-03-08] MEDS: ONDANSETRON INJECTION 4 MG/2 ML (SDV) IV PRN (15:21)
[2023-03-08] MEDS: NS IV 1000 ML 1,000 ML IV SCH (15:25)
[2023-03-08] MEDS: CIPROFLOXACIN 400 MG/D5W 200 ML (PRE-MIX) IV SCH (15:25)
--- NOTE | 2023-03-08 15:38 | HISTORY AND PHYSICAL ---
DATE OF SERVICE: 03/08/2023 ATTENDING PRIMARY CARE PHYSICIAN: Maureen Rai DO HISTORY OF PRESENT ILLNESS: The patient is a 32-year-old female who presented to the Emergency Department with a 1-day history of pain in the right lower abdominal quadrant with associated nausea and vomiting. Since the onset of the pain, she states that she has not been able to eat any food as well as not be able to drink any liquids. She states she did have a bowel movement yesterday and she felt that she was initially constipated and then did take some laxatives. She has had bowel movements since then; however, did not improve any of her discomfort or pain. She is currently and has not had a menstrual cycle since her most recent and . A CT scan was performed, which did show inflammation of the appendix with no perforation consistent with a noncomplicated acute appendicitis. Cholelithiasis was also identified on the CT scan. PAST MEDICAL HISTORY: None. PAST SURGICAL HISTORY: [place] teeth extraction. ALLERGIES: No known drug allergies. MEDICATIONS: Aspirin 81 mg daily, acetaminophen, ibuprofen p.r.n., vitamin daily. SOCIAL HISTORY: Negative smoke. Rare alcohol. FAMILY HISTORY: Noncontributory. VITAL SIGNS: Temperature 35.7, blood pressure 126/93, pulse 73, respirations 14, pulse ox 99% on room air. REVIEW OF SYSTEMS: Well-nourished female, currently in no acute distress. She is not experiencing any shortness of breath or difficulty breathing. No chest pain, palpitations, diaphoresis. Pain in the right lower abdominal quadrant of acute onset starting last night. She has had some mild discomfort during her in the right upper abdominal quadrant. She has also had nausea and vomiting starting yesterday. No fever, chills, no recent inadvertent weight loss. All other review of systems negative. PHYSICAL EXAMINATION: CHEST: Clear. Good breath sounds bilaterally. HEART: Regular. No murmurs. EXTREMITIES: No lower extremity edema. Negative Homans sign. HEENT: No scleral icterus. No cervical lymphadenopathy. ABDOMEN: Soft, nondistended. There is pain in the right lower abdominal quadrant with voluntary guarding, and some mild discomfort upon deep palpation of the right upper abdominal quadrant. No hernias. SKIN: Warm, dry. LABORATORY DATA: WBC 16.9, hemoglobin 14.7, hematocrit 43, platelets 287. BUN 15, creatinine 0.68. Liver function enzymes normal. ASSESSMENT AND PLAN: A 32-year-old female with acute noncomplicated appendicitis as well as possible symptomatic cholelithiasis. We explained the risks and benefits of both procedures, and at the very least, we will recommend a diagnostic laparoscopy as well as a laparoscopic appendectomy; however, if she appears to be symptomatic or has had a history of symptoms related to cholelithiasis, we may recommend a simultaneous cholecystectomy. Job ID: [id number] DocumentID: [id number] Dictated Date: 03/08/2023 15:15:36 Food Production Associate Date: 03/08/2023 15:37:00 Dictated By: HOLLY MORRISON MD
[2023-03-08] MEDS ORDERED: PROMETHAZINE INJ 25 MG/ML VIAL IVP PRN (16:00)
--- NOTE | 2023-03-08 16:23 | Progress Note-Pre Operative ---
Pre-Operative Progress Note Date of Available H&P: Mar 08, 2023 Date H&P Reviewed: Mar 08, 2023 Time H&P Reviewed: 16:00 History & Physical: No changes noted Pre-Operative Diagnosis: sx chronic calculous cholecystitis and acute non- complicated appendicitis. HOLLY MORRISON MD Mar 08, 2023 16:23
[2023-03-08] MEDS: fentaNYL INJECTION 100 MCG/2 ML VIAL IV PRN ×4 (17:08→21:23)
[2023-03-08 19:43] VITALS: BP 107/57
[2023-03-08] MEDS: HYDROcodone/ACETAMINOPHEN 7.5 MG/325 MG TABLET PO PRN (21:23)
[2023-03-08] MEDS: metroNIDAZOLE 500MG/100ML IVPB 100 ML IV SCH (21:24)
[2023-03-08 23:20] VITALS: BP 101/61
[2023-03-09] VITALS (11 sets, daily range): BP systolic 98–126; BP diastolic 53–87
[2023-03-09] MEDS: NS IV 1000 ML 1,000 ML IV SCH ×3 (00:09→16:32)
[2023-03-09] MEDS: CIPROFLOXACIN 400 MG/D5W 200 ML (PRE-MIX) IV SCH ×2 (03:33→16:06)
[2023-03-09 05:34] LABS: BASOPHILS % (AUTO) 0 % (0-10); EOSINOPHILS # (AUTO) 0.1 10^3/uL (0.0-0.3); EOSINOPHILS % (AUTO) 1 % (0-10); HEMATOCRIT 36 % (35-52); HEMOGLOBIN 11.9 g/dL (11.5-16.0); LYMPHOCYTES # (AUTO) 1.8 10^3/uL (1.0-4.0); LYMPHOCYTES % (AUTO) 21 % (12-44); MEAN CORPUSCULAR HEMOGLOBIN 31 pg (25-34); MEAN CORPUSCULAR HGB CONC 33 g/dL (32-36); MEAN CORPUSCULAR VOLUME 93 fL (80-99); MEAN PLATELET VOLUME 9.4 fL (9.0-12.2); MONOCYTES # (AUTO) 0.7 10^3/uL (0.0-1.0); MONOCYTES % (AUTO) 8 % (0-12); NEUTROPHILS % (AUTO) 70 % (42-75); PLATELET COUNT 210 10^3/uL (130-400); WHITE BLOOD COUNT 8.5 10^3/uL (4.3-11.0)
[2023-03-09 05:53] LABS: CALCIUM 8.5 MG/DL (8.5-10.1); CREATININE SERUM 0.65 MG/DL (0.60-1.30); POTASSIUM 3.3 MMOL/L (3.6-5.0)
[2023-03-09] MEDS: metroNIDAZOLE 500MG/100ML IVPB 100 ML IV SCH ×2 (06:31→14:32)
[2023-03-09] MEDS: fentaNYL INJECTION 100 MCG/2 ML VIAL IV PRN (06:37)
[2023-03-09] MEDS ORDERED: LACTATED RINGERS 1,000 ML 1,000 ML IV PRN (09:00)
[2023-03-09] MEDS ORDERED: LIDOCAINE PF 2% 5 ML VIAL ONE (11:00)
[2023-03-09] MEDS ORDERED: dexAMETHasone INJ 10 MG/ML 1 ML VIAL ONE (11:00)
[2023-03-09] MEDS ORDERED: ONDANSETRON INJECTION 4 MG/2 ML (SDV) ONE ×2 (11:00→12:36)
[2023-03-09] MEDS ORDERED: SEVOFLURANE (ULTANE) 15 ML INHAL SOLN ONE (11:00)
[2023-03-09] MEDS ORDERED: ROCURONIUM 50 MG/5 ML VIAL IV ONE (11:00)
[2023-03-09] MEDS ORDERED: fentaNYL INJECTION 100 MCG/2 ML VIAL ONE (11:00)
[2023-03-09] MEDS ORDERED: MIDAZOLAM INJ 2 MG/2 ML VIAL ONE (11:00)
[2023-03-09] MEDS ORDERED: proPOfol INJECTION 200 MG/20 ML VIAL IV ONE (11:00)
--- NOTE | 2023-03-09 12:29 | Anesthesia-General Post-Op ---
General Patient Condition Mental Status/LOC: Same as Preop Cardiovascular: Satisfactory Nausea/Vomiting: Absent Respiratory: Satisfactory Pain: Controlled Complications: Absent Post Op Complications Complications None Follow Up Care/Instructions Patient Instructions None needed. Anesthesia/Patient Condition Patient Condition Patient is doing well, no complaints, stable vital signs, no apparent adverse anesthesia problems. No complications reported per nursing. DEBORA MIRAMONTES CRNA Mar 09, 2023 12:29
[2023-03-09] MEDS ORDERED: MEPERIDINE INJ 50 MG/ML VIAL IVP ONE (12:30)
[2023-03-09] MEDS ORDERED: morphine INJ 10 MG/ML 1ML (SYR OR VIAL) IVP ONE (12:30)
[2023-03-09] MEDS ORDERED: ONDANSETRON INJECTION 4 MG/2 ML (SDV) IVP PRN (12:30)
--- NOTE | 2023-03-09 12:30 | Progress Note-Post Operative ---
Post-Operative Progess Note Surgeon (s)/Wash Oil Pump Operator Helper (s) Surgeon HOLLY MORRISON MD Wash Oil Pump Operator Helper: rod mckeon [employer]CH MANAGER Pre-Operative Diagnosis sx chronic calculous cholecystitis and acute non-complicated appendicitis. Post-Operative Diagnosis same Procedure & Operative Findings Date of Procedure 03/09/23 Procedure Performed/Findings laparoscopic appendectomy and cholecystectomy Anesthesia Type get Estimated Blood Loss Estimated blood loss (mL): minimal Specimens/Packing Specimens Removed gallbladder,appendix HOLLY MORRISON MD Mar 09, 2023 12:30
[2023-03-09] MEDS ORDERED: morphine INJ 10 MG/ML 1ML (SYR OR VIAL) ONE (12:36)
[2023-03-09] MEDS ORDERED: MEPERIDINE INJ 50 MG/ML VIAL ONE (12:53)
[2023-03-09] MEDS ORDERED: ACET-2267 PO (14:53)
[2023-03-09] MEDS: HYDROcodone/ACETAMINOPHEN 7.5 MG/325 MG TABLET PO PRN (14:58)
[2023-03-09] MEDS: ONDANSETRON INJECTION 4 MG/2 ML (SDV) IV PRN (14:58)
--- NOTE | 2023-03-09 18:31 | OPERATIVE REPORT ---
DATE OF SERVICE: 03/09/2023 ATTENDING PRIMARY CARE PHYSICIAN: Maureen Rai DO PREOPERATIVE DIAGNOSES: Acute noncomplicated appendicitis, symptomatic chronic calculous cholecystitis. POSTOPERATIVE DIAGNOSES: Acute noncomplicated appendicitis, symptomatic chronic calculous cholecystitis. PROCEDURE: Laparoscopic cholecystectomy and appendectomy. SURGEON: Holly Morrison MD CONTRACT RUNNER: Lemuel Bruce APRN ANESTHESIA: General endotracheal. ESTIMATED BLOOD LOSS: Minimal. FINDINGS: Acute noncomplicated appendicitis, symptomatic chronic calculous cholecystitis. DISPOSITION: The patient tolerated the procedure well. INDICATIONS: The patient is a 32-year-old female who presented to the Emergency Department with 1-day history of pain in the right lower abdominal quadrant with associated nausea and vomiting. Since the onset of pain, she has not been able to eat any food as well as not to drink any liquids. She states that she did have a bowel movement the day previous and felt that she was initially constipated and then did take some laxatives in hopes that this would alleviate the pain; however, did not. She is currently and is approximately 4 months and has not had a menstrual cycle since her most recent and . CT scan was performed, which did show inflammation of appendix with no perforation consistent with a noncomplicated acute appendicitis; however, there was also cholelithiasis and a distended gallbladder identified on the CT scan as well, which may have been contributing to her nausea and vomiting. Recommendation was to proceed with a laparoscopic appendectomy as well as a cholecystectomy. DESCRIPTION OF PROCEDURE: The patient was brought to the operating room, laid supine on the table. After adequate IV pain and sedative medications and general endotracheal intubation, the abdomen was prepped and draped in standard surgical fashion. A 0.5% Marcaine with epinephrine was then used to anesthetize the overlying skin in the left upper abdominal quadrant and a transverse skin incision made using a #15 blade. An 0 silk suture was applied to the medial aspect of the incision for retraction and a Veress needle inserted with a low opening pressure of 0 mmHg and the abdomen was insufflated to 15 mmHg pressure. The Veress needle removed and a 5 mm trocar placed followed by a 5 mm 45-degree angle laparoscope visualized the peritoneal cavity. A 4-quadrant abdominal exploration was performed. There was a distended gallbladder with omental adhesions towards the fundus of the gallbladder. There was an inflamed appendix, which was a retrocolic, no perforation identified. Under direct visualization, we then proceeded to place an infraumbilical 10 mm port after the skin and peritoneal lining were anesthetized using 0.5% Marcaine with epinephrine and a transverse skin incision made using a #15 blade. In a similar manner, a right lateral 5 mm port was placed. The patient was then placed in a reverse Trendelenburg position as well as planed right side up, left side down. The fundus of the gallbladder was then retracted anteriorly and superiorly. The omental adhesions towards the fundus of the gallbladder were then taken down using electrocautery on the hook instrument. The hepatoduodenal ligament was then dissected using blunt dissection as well as electrocautery using the hook instrument as well as the [place] dissector. The entire critical view of safety was identified including the triangle of Calot as well as the cystic duct and artery as the only 2 structures going into the gallbladder as well as the cystic plate behind the proximal gallbladder. A timeout was then taken and the cystic duct and artery were then clipped proximally and distally and cut with EndoShears. The gallbladder was then dissected off of the liver bed using cautery on the hook instrument with visualization of good hemostasis as well as no leaking ducts of Luschka. The patient was then placed in a Trendelenburg position. The appendix was then dissected out bluntly as well as using electrocautery using the hook instrument as well as the [place] dissector. The appendix was then retracted towards the anterior abdominal wall. A window created between the base of the appendix at the cecal base as well as the mesoappendix using a [place] dissector. The mesoappendix was first stapled and transected with a KARON 45 mm stapler with a 2.0 mm thickness load with visualization of good hemostasis. The appendix was then stapled and transected at the cecal base using the same stapler with a 2.5 mm thickness reload. Both the appendix and gallbladder was then placed in an EndoCatch bag and removed through the 10 mm port site. The resected appendiceal site was then copiously irrigated and suctioned out as well as the pelvis. The 10 mm port site fascia and peritoneum were then closed under direct visualization using a New-Phil device and 0 Vicryl suture. The abdomen was desufflated and remaining ports removed. All skin incisions were closed using 4-0 Monocryl running subcuticular sutures. Wounds were then cleaned and covered with Dermabond. The patient tolerated the procedure well. We will start IV normal pain medication as well as a clear liquid diet. Once she is tolerating clears with good pain control with oral pain medication and is ambulating well, we will discharge her home where she will be instructed to do no heavy lifting or exertion for the next 2 weeks. Job ID: [id number] DocumentID: [id number] Dictated Date: 03/09/2023 12:37:16 Insurance Counsel Date: 03/09/2023 18:29:00 Dictated By: HOLLY MORRISON MD
== END 2023-03-09 18:36 | disposition home or self-care (01) ==
LOC: EDUNIT# 12:22 → ER 12:24 → 4TH 14:41
PROVIDERS: ADMIT Surgery; ATTEND Surgery
DX: K35.80 Unspecified acute appendicitis (principal); K80.10 Calculus of gallbladder with chronic cholecystitis without obstruction; Z28.310 Unvaccinated for COVID-19
CPT/HCPCS: 36415; 74177; 80048; 80053; 81000; 83690; 84703; 85007; 85025; 85027; 86141; 87081; 88304; 96361; 96365; 96366; 96375; 96376

== ENCOUNTER → 2023-04-21 | Outpatient (CLI) | payer BC ==
[~2023-04-21] MED LIST changes: +ACET-2267 PO; +HYDR-3817 PO
[2023-04-21 10:45] LABS: HEMATOCRIT 43 % (35-52); HEMOGLOBIN 14.5 g/dL (11.5-16.0); MEAN CORPUSCULAR HEMOGLOBIN 30 pg (25-34); MEAN CORPUSCULAR HGB CONC 34 g/dL (32-36); MEAN CORPUSCULAR VOLUME 90 fL (80-99); MEAN PLATELET VOLUME 8.9 fL (9.0-12.2); PLATELET COUNT 290 10^3/uL (130-400); WHITE BLOOD COUNT 6.1 10^3/uL (4.3-11.0)
[2023-04-21 11:04] LABS: ALBUMIN 4.5 GM/DL (3.2-4.5); POTASSIUM 4.4 MMOL/L (3.6-5.0)
--- NOTE | 2023-04-21 11:04 | Diagnostic Imaging Report ---
PROCEDURE: CT abdomen and pelvis without contrast. TECHNIQUE: Multiple contiguous axial images were obtained through the abdomen and pelvis without the use of intravenous contrast. Auto Exposure Controls were utilized during the CT exam to meet ALARA standards for radiation dose reduction. INDICATION: Recent cholecystectomy and appendectomy. Now with upper gastric pain radiating to the back. COMPARISON: 03/08/2023. FINDINGS: Included portions of the lung bases are clear. CT ABDOMEN: Normal appendix cannot be adequately identified, but appears to be surgically absent. Moderate air and stool is present scattered throughout the colon. Small bowel loops are nondilated. The kidneys, adrenal glands, spleen, pancreas, and liver have an unremarkable noncontrast CT appearance. There is no loculated fluid collection, free fluid, or free air within the abdomen. No abnormal mesenteric or retroperitoneal adenopathy is seen. Osseous structures show no acute abnormalities. CT PELVIS: Urinary bladder is unopacified. No calculi are seen within the urinary bladder. There is no loculated fluid collection, free fluid, or free air. No abnormal lymph nodes are seen. Osseous structures show no acute abnormalities. IMPRESSION: 1. No acute abnormality is seen within the abdomen or pelvis. Dictated by: Dictated on workstation # [id number]
[2023-04-21 11:05] LABS: CALCIUM 9.7 MG/DL (8.5-10.1)
[2023-04-21 11:07] LABS: TOTAL PROTEIN 7.9 GM/DL (6.4-8.2)
[2023-04-21 11:09] LABS: BILIRUBIN,TOTAL 0.6 MG/DL (0.1-1.0)
[2023-04-21 11:10] LABS: CREATININE SERUM 0.7 MG/DL (0.60-1.30)
== END ==
LOC: RAD 10:32
PROVIDERS: ATTEND Surgery
DX: R10.9 Unspecified abdominal pain (principal); Z90.49 Acquired absence of other specified parts of digestive tract
CPT/HCPCS: 36415; 74176; 80053; 85027